=== PATIENT | female | born 1955 | race Hispanic/Latino ===

== ENCOUNTER → 2020-12-31 | Outpatient (CLI) | payer BC ==
[~2020-12-31] MED LIST: DIATRIZOATE MEGL/DIATRIZOA SOD 30 ML BTL PO ONE; IOPAMIDOL 370 MG/ML 200 ML INFUS..BTL INJ ONE; SODIUM CHLORIDE 0.9% 50ML 50 ML ONE
[2020-12-31 16:04] LABS: CREATININE, SERUM 0.82 mg/dL (0.57-1.11)
== END ==
LOC: CT 14:58
PROVIDERS: ATTEND Surgery
DX: R10.31 Right lower quadrant pain (principal)
CPT/HCPCS: 36415; 72193; 82565; 84520; Q9967